=== PATIENT | male | born 1995 | race Caucasian/White ===

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

== ENCOUNTER 2017-03-29 19:38 | Emergency (ER) | payer BC ==
[2017-03-29 19:41] VITALS: RESP 18
--- NOTE | 2017-03-29 20:07 | EDPHY ---
H & P Stated Complaint: SPLINTER TO R INDEX FINGER HPI/ROS: HPI CHIEF COMPLAINT: Splinter to her right index finger distal aspect palm side, additionally cough HISTORY OF PRESENT ILLNESS: This patient is a 21-year-old male otherwise healthy no significant medical history presents emergency room with a splinter deep in the right index finger Distal aspect. With minimal erythema. Patient concerned that he has infection. He was unable to get this around this happened yesterday. He was poking at it to try to get it out. Additionally reports to me that he has had a cough with some wheezing. Productive sputum. No fever. No chills no rigors. He thinks he may have pneumonia or walking pneumonia or bronchitis. Past Medical History: No significant medical history Past Surgical History: No significant surgical history Social History: Smokes marijuana regularly. Denies illicit drugs alcohol or daily tobacco. [employer] student. Family History: Noncontributory ROS REVIEW OF SYSTEMS: A comprehensive 10 point review of systems is otherwise negative aside from elements mentioned in the history of present illness. Exam Constitutional appears well nontoxic triage nursing summary reviewed, vital signs reviewed, awake/alert. Eyes normal conjunctivae and sclera, EOMI, PERRLA. HENT normal inspection, atraumatic, moist mucus membranes, no epistaxis, neck supple/ no meningismus, no raccoon eyes. Respiratory Slight rhonchi/Slight wheeze, on the left lung base compared to the right, good air movement. No rhonchi or crackles. Cardiovascular rate normal, regular rhythm, no murmur, no edema, distal pulses normal. Gastrointestinal soft, non-tender, no rebound, no guarding, normal bowel sounds, no distension, no pulsatile mass. Genitourinary no CVA tenderness. Musculoskeletal no midline vertebral tenderness, full range of motion, no calf swelling, no tenderness of extremities, no meningismus, good pulses, neurovascularly intact. Skin right hand: Neurovascularly intact. To the index finger on the right hand palmar side distal aspect there is a splinter moncho. minimal erythema. No pus. No signs of flexor tenosynovitis or extensor infection. No sausage digit. Good cap refill. Warm hand. Neurovascular intact. Neurologic awake, alert and oriented x 3, AAOx3, moves all 4 extremities equally, motor intact, sensory intact, CN II-XII intact, normal cerebellar, normal vision, normal speech. Psychiatric normal mood/affect. Heme/Lymph/Immune no lymphadenopathy. Differential Diagnosis: Includes but is not limited to in a particular order bronchitis, acute bronchitis, pneumonia, walking pneumonia, splinter retained in right index finger, infection, cellulitis Medical Decision Making: Plan for this patient recommend antibiotic coverage for the erythema around his index finger, close follow-up with Hand surgery, at this time do not feel that we she did for this splinter as his index finger is swollen and red. May cause more harm. Recommend and a warm soaks, and Orthopedic Hand follow-up. Explain this to the patient. He understands. and additionally chest x-ray two view to rule out pneumonia. Most likely will place this patient on Keflex and albuterol inhaler. Recommend refraining from smoking. Re-evaluation: ED x-ray chest: Two view negative for acute cardiopulmonary disease. 2100: Plan for this patient he has retain most likely splinter in his right index finger. It is minimally erythematous and painful. I do not feel comfortable digging deep and trying to explore for this splinter given the possibility of infection and swelling. I do recommend he follows closely up with Hand surgery in the next 24 hours. He should do Warm soaks. And take Antibiotics. Additionally as for his cough and bronchitis. He was not wheezing on exam but he does have slight rhonchi in the left base. The x-ray was reviewed two view. No focal pneumonia. Will place this patient on albuterol inhaler. Keflex for his finger He does additionally understand return emergency room if he has worsening symptoms. This includes fever, worsening hand or finger pain or swelling or drainage. Follow up with Hand surgery. Worsening lung or pulmonary symptoms. He understands to have close follow up with Hand for possible retained foreign body(Splinter) deep in his index finger, palmar side. Source: Patient - Personal History Current Tetanus/Diphtheria Vaccine: Yes Current Tetanus Diphtheria and Acellular Pertussis (TDAP): Yes - Medical/Surgical History Hx Asthma: No Hx Chronic Respiratory Disease: No Hx Diabetes: No Hx Cardiac Disease: No Hx Renal Disease: No Hx Cirrhosis: No Hx Alcoholism: No Hx HIV/AIDS: No Hx Splenectomy or Spleen Trauma: No Other PMH: flu, Strep, tonsillitis APR 2016 - Social History Smoking Status: Current some day smoker Constitutional: Initial Vital Signs Temperature (C) 36.7 C 03/29/17 19:40 Heart Rate 70 03/29/17 19:40 Respiratory Rate 18 03/29/17 19:40 Blood Pressure 153/82 H 03/29/17 19:40 O2 Sat (%) 97 03/29/17 19:40 O2 Delivery Mode Room Air Allergies/Adverse Reactions: No Known Allergies Allergy (Unverified 03/29/17 19:41) Home Medications: Medication Instructions Recorded Albuterol [Proventil Inhaler HFA 1 - 2 puffs IH Q4H #1 mdi 03/29/17 (*)] Cephalexin [Keflex (*)] 500 mg PO Q6H #28 cap 03/29/17 Departure - Departure Disposition: Home, Routine, Self-Care Clinical Impression: Bronchitis, Splinter in skin Cellulitis Qualifiers: Site of cellulitis: extremity Site of cellulitis of extremity: upper extremity Laterality: right Qualified Code(s): L03.113 - Cellulitis of right upper limb Condition: Good Instructions: Cellulitis (ED), Acute Bronchitis (ED), Wheezing (ED), How Your Lungs Work (ED) Additional Instructions: 1. I recommend to perform warm soak your finger 3 times a day for the 20-40 minutes minutes. 2. Please follow up with Hand surgery please call their for an appointment. 3. Antibiotics as prescribed. 4. Albuterol for wheezing. 5. Refrain from smoking. 6. Return to the emergency room if you have worsening symptoms questions or concerns. Referrals: Anshul Brooks MD [Medical Doctor] - As per Instructions Stand Alone Forms: School Excuse Prescriptions: Albuterol [Proventil Inhaler HFA (*)] 1 - 2 puffs IH Q4H #1 mdi Cephalexin [Keflex (*)] 500 mg PO Q6H #28 cap
[2017-03-29 20:50] VITALS: BP 158/108; PULSE 72; TEMP 98.2; O2SAT 98
== END 2017-03-29 21:11 | disposition home or self-care (01) ==
DX: S60.450A Superficial foreign body of right index finger, initial encounter (principal); L03.113 Cellulitis of right upper limb; J40 Bronchitis, not specified as acute or chronic; F17.200 Nicotine dependence, unspecified, uncomplicated; W45.8XXA Other foreign body or object entering through skin, initial encounter
CPT/HCPCS: L3925